=== PATIENT | female | born 1985 | race Caucasian/White ===

== ENCOUNTER → 2019-10-21 | Outpatient (CLI) | payer OTHER | LOC: OD 10:38 | PROVIDERS: ATTEND Obstetrics & Gynecology | DX: O20.0 Threatened abortion (principal) | CPT/HCPCS: 36415; 84702 ==

== ENCOUNTER → 2019-10-24 | Outpatient (CLI) | payer OTHER | LOC: OD 07:23 | PROVIDERS: ATTEND Obstetrics & Gynecology | DX: O20.0 Threatened abortion (principal) | CPT/HCPCS: 36415; 84702 ==

== ENCOUNTER 2020-06-13 14:43 | Outpatient (CLI) | payer OTHER ==
--- NOTE | 2020-06-13 16:00 | Non Stress Test Report ---
Non Stress Test Datetime Report Generated by CPN: 06/13/2020 15:59 DEMOGRAPHIC EGA NST: 38.2 INDICATION Indication for Study (NST) Other: IUP at 38.2 VITAL SIGNS Temperature - NST: 97.1 Pulse - NST: 97 RESP - NST: 18 NBPSYS NST: 113 NBPDIA NST: 52 MONITORING Monitor Explained: Monitor Explained; Test Explained; Patient Verbalized Understanding Time on Monitor: 06/13/2020 14:48 Time off Monitor: 06/13/2020 15:53 NST Duration: 65 NST INTERVENTIONS NST Interventions: PO Hydration; Reposition Patient Physician Notified NST: C. Louise, CNM BABY A: [id number] BABY A Movement : Present Contraction Frequency : 0 FHR Baseline : 130 Accelerations : 15X15 Decelerations : None Variability : Moderate 6-25bpm NST Review: Meets Criteria for Reactive NST NST Review and Verified By : AFeuston, RN NST Results: Reactive NST COMMENTS NST Comments: C. Louise, CNM reviewed strip NST REPORT Report Trigger: Send Report
[2020-06-13 16:16] LABS: APPEARANCE,URINE CLOUDY; BILIRUBIN,URINE NEGATIVE (NEGATIVE); COLOR,URINE YELLOW; GLUCOSE, URINE NEGATIVE (NEGATIVE); KETONES,URINE TRACE mg/dL (NEGATIVE); LEUKOCYTE ESTERASE,URINE MODERATE (NEGATIVE); NITRITE,URINE NEGATIVE (NEGATIVE); PROTEIN,URINE 30 mg/dL (NEGATIVE); UROBILINOGEN,URINE NEGATIVE mg/dL (<2.0)
[2020-06-13 16:38] LABS: URINE AMPHETAMINES SCREEN NEGATIVE; URINE BARBITURATES SCREEN NEGATIVE; URINE BENZODIAZEPINES SCREEN NEGATIVE; URINE COCAINE SCREEN NEGATIVE; URINE MARIJUANA (THC) SCREEN NEGATIVE; URINE METHADONE SCREEN NEGATIVE; URINE PHENCYCLIDINE SCREEN NEGATIVE
== END 2020-06-13 16:08 | disposition home or self-care (01) ==
LOC: LC 14:43
PROVIDERS: ATTEND Obstetrics & Gynecology
DX: O40.3XX0 Polyhydramnios, third trimester, not applicable or unspecified (principal); R10.9 Unspecified abdominal pain; Z3A.38 38 weeks gestation of pregnancy
CPT/HCPCS: 59025; 80307; 81005

== ENCOUNTER 2020-06-17 17:23 | Inpatient (IN) | payer OTHER ==
[2020-06-17] MEDS ORDERED: ACETAMINOPHEN 325 MG TABLET PO PRN (17:30)
[2020-06-17] MEDS ORDERED: OXYTOCIN/0.9 % SODIUM CHLORIDE 30 UNIT/500 ML RTUINJ IV PRN (17:30)
[2020-06-17] MEDS ORDERED: DINOPROSTONE 10 MG VAGINAL INSERT.SR PV ONE (17:30)
[2020-06-17] MEDS ORDERED: RINGERS SOLUTION,LACTATED 300 ML IV ONE (17:30)
[2020-06-17] MEDS ORDERED: MAG HYDROX/AL HYDROX/SIMETH SUSP 30 ML UDCUP PO PRN (17:30)
[2020-06-17] MEDS ORDERED: ZOLPIDEM TARTRATE 5 MG TABLET PO PRN (17:30)
[2020-06-17] MEDS: RINGERS SOLUTION,LACTATED 1,000 ML IV PRN (18:12)
[2020-06-17 18:21] LABS: APPEARANCE,URINE SLIGHTLY-CLOUDY; BILIRUBIN,URINE NEGATIVE (NEGATIVE); COLOR,URINE YELLOW; GLUCOSE, URINE NEGATIVE (NEGATIVE); KETONES,URINE NEGATIVE (NEGATIVE); LEUKOCYTE ESTERASE,URINE NEGATIVE (NEGATIVE); NITRITE,URINE NEGATIVE (NEGATIVE); PROTEIN,URINE NEGATIVE (NEGATIVE); URINE SPECIFIC GRAVITY 1.013; UROBILINOGEN,URINE NEGATIVE mg/dL (<2.0)
[2020-06-17 18:34] LABS: ABSOLUTE BASOPHILS # (AUTO) 0.1 10^3/uL (0.0-0.2); ABSOLUTE LYMPHOCYTES (AUTO) 2.6 10^3/uL (0.5-4.7); ABSOLUTE MONOCYTES (AUTO) 0.7 10^3/uL (0.1-1.4); ABSOLUTE NEUT (AUTO) 9.5 10^3/uL (1.7-8.2); BASOPHILS % (AUTO) 0.6 % (0-2); EOSINOPHILS % (AUTO) 0.3 % (0-6); HEMATOCRIT 30.4 % (36.0-47.0); HEMOGLOBIN 10.2 g/dL (12.0-15.5); MEAN CORPUSCULAR HGB CONC 33.5 g/dL (32.0-36.0); MEAN CORPUSCULAR VOLUME 92 fl (80-97); MONOCYTES % (AUTO) 5.5 % (3-13); PLATELET COUNT 185 10^3/uL (150-450); RED BLOOD COUNT 3.28 10^6/uL (3.72-5.28); RED CELL DISTRIBUTION WIDTH 18.2 % (11.5-14.0); SEGMENTED NEUTROPHILS % (AUTO) 73.6 % (42-78); TOTAL CELLS COUNTED % (AUTO) 100 %; WHITE BLOOD COUNT 12.9 10^3/uL (4.0-10.5)
[2020-06-17 18:50] LABS: URINE AMPHETAMINES SCREEN NEGATIVE; URINE BARBITURATES SCREEN NEGATIVE; URINE BENZODIAZEPINES SCREEN NEGATIVE; URINE COCAINE SCREEN NEGATIVE; URINE MARIJUANA (THC) SCREEN NEGATIVE; URINE METHADONE SCREEN NEGATIVE; URINE PHENCYCLIDINE SCREEN NEGATIVE
[2020-06-17] MEDS ORDERED: DINOPROSTONE 10 MG VAGINAL INSERT.SR ONE (19:10)
--- NOTE | 2020-06-17 23:39 | Admission Physical ---
Datetime Report Generated by CPN: 06/17/2020 23:39 CURRENT ADMISSION Chief Complaint: Other Indication for Induction: Maternal Diabetes Admit Impression : Term, Intrauterine Admit Plan: Admit to Unit; Initiate Labor Augmentation Protocol ALLERGIES Medication Allergies: No Medication Allergies: spinach (06/17/2020); walnut (06/17/2020); pecan nut (06/17/2020) Latex: No Latex Allergies Food Allergies: Walnuts, Pecan, and spinach Environmental Allergies: Seasonal OBSTETRICAL HISTORY EDC: 06/25/2020 00:00 : 3 Para: 1 Term: 1 : 0 SAB: 0 IAB: 1 Ectopic: 0 Livin Cesareans: 0 VBACs: 0 Multiple Births: 1 Gestational Diabetes: No Rh Sensitization: No Incompetent Cervix: No DANIELLE: No Infertility: Yes ART Treatment: No Uterine Anomaly: No IUGR: No Hx Previous C/S: No Macrosomia: No Hx Loss/Stillborn: No PIH: No Hx : No Placenta Previa/Abruption: No Depression/PP Depression: No PTL/PROM: No Post Hemorrhage: No Current Procedures: Ultrasound; NST Obstetrical History Comments: G1- 2004, Twins, 27 weeks, and vaginal G2- 2004, IAB G3- Current, IOL, Poly SEE RECORDS Alcohol: No Marijuana : No Cocaine: No Other Illicit Drugs: No Cigarettes: Never Smoker. 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 surgery for PCOS 2017, obesity, wisdom teeth 2018, Childbirth INFECTIOUS HISTORY Gonorrhea: No Genital Herpes: No Chlamydia: No Tuberculosis: No Syphilis: No Hepatitis: No HIV/AIDS Exposure: No Rash or Viral Illness: No HPV: No PHYSICAL EXAM General: Normal HEENT: Normal Neurologic: Normal Thyroid: Normal Heart: Normal Lungs: Normal Breast: Deferred Back: Normal Abdomen: Normal Genitourinary Exam: Normal Extremities: Normal DTRs: Normal Pelvic Type: Adequate FETUS A EGA: 38.6 PLANS FOR LABOR AND DELIVERY Labor and Delivery: None Pain Management: Epidural Feeding Preference: Formula Benefit of Breast Feed Discussed: Yes Circumcision: N/A INFORMED CONSENT Signature: with User ID: [email or web address]
[2020-06-18] MEDS ORDERED: ZOLPIDEM TARTRATE 5 MG TABLET ONE ×2 (01:01→01:03)
--- NOTE | 2020-06-18 09:01 | L&D Progress Notes ---
PROGRESS NOTES Datetime Report Generated by CPN: 06/18/2020 09:01 PROGRESS NOTE Impression: Reassuring Heart Rate Procedures- Other: garvin's cath placed Plan: Continue Present Management; Induction Vital Signs : Reviewed; Within Normal Limits Comment: here for IOL, at 39 wks. Hx Polyhydramnios and GDM. Vtx on spot check u/s this morning. S/p Cervidil overnight. Pt doing well, no complaints. VE 50/-3 with mild contractions. Garvin's cath placed w/ 80 ml fluid in each bulb. Pt tolerated well. Will start Pitocin. GBS negative. Attending MD is Dr Mcneill today, agrees w/ plan of care. LAST VAGINAL EXAM-NURSING Nursing Exam Dilitation: 1.0 Nursing Exam Effacement: 50 Nursing Exam Station: -3 Nursing Exam Contractions: Pt states "I feel something every once in a while, but not much." MEMBRANES Membranes: Intact FETUS A FHR - Baseline: 145 Variability: Moderate 6-25bpm Accelerations: 10X10 Decelerations: None SIGNATURE SIGNATURE: [id number];[id number];[id number] Assignment: Rose Mcneill MD Signature: with User ID: [email or web address] : with User ID: [email or web address]
[2020-06-18] MEDS ORDERED: MISOPROSTOL 0.2 MG TABLET ONE (09:02)
[2020-06-18] MEDS ORDERED: OXYTOCIN 10 UNIT/ML VIAL ONE (09:02)
[2020-06-18] MEDS ORDERED: LIDOCAINE 1% INJ-PF (10 MG/ML) 30 ML SDV ONE (09:02)
[2020-06-18] MEDS ORDERED: OXYTOCIN/0.9 % SODIUM CHLORIDE 30 UNIT/500 ML RTUINJ ONE (09:02)
[2020-06-18] MEDS: RINGERS SOLUTION,LACTATED 1,000 ML IV PRN ×2 (13:12→17:38)
--- NOTE | 2020-06-18 16:16 | L&D Progress Notes ---
PROGRESS NOTES Datetime Report Generated by CPN: 06/18/2020 16:16 PROGRESS NOTE Impression: Reassuring Heart Rate Procedures: Artificial ROM; Sterile Vag Exam Procedures- Other: Garvin's cathater removed Plan: Continue Present Management; Induction Vital Signs : Reviewed Comment: Pt remains comfortable, Pitocin infusing. Virgie's cathater removed. VE 3/50/-2. AROM w/ moderate amount of clear, bloodtinged fluid. Pt may have an epidural when she desires. Dr Mcneill updated on pts status. LAST VAGINAL EXAM-NURSING Nursing Exam Dilitation: 3.0 Nursing Exam Effacement: 50 Nursing Exam Station: -2 Nursing Exam Contractions: Pt states "I feel something every once in a while, but not much." MEMBRANES Membranes: Ruptured Amniotic Fluid Color: Bloody FETUS A FHR - Baseline: 145 Monitoring: External US Variability: Moderate 6-25bpm Accelerations: 15X15 Decelerations: None SIGNATURE SIGNATURE: [id number];[id number];[id number] Assignment: Rose Mcneill MD Signature: with User ID: [email or web address] : with User ID: [email or web address]
--- NOTE | 2020-06-18 16:52 | L&D Progress Notes ---
PROGRESS NOTES Datetime Report Generated by CPN: 06/18/2020 16:52 PROGRESS NOTE Impression: Reassuring Heart Rate Procedures: Artificial ROM; Sterile Vag Exam Procedures- Other: Garvin's cathater removed Plan: Continue Present Management; Induction Vital Signs : Reviewed Comment: Pt now becoming uncomfortable w/ contractions. RN requesting FSE., difficult to continually monitor FHR d/t pts habitus and polyhydramnios. Ve /-2. FSE applied. Pt to get an epidural LAST VAGINAL EXAM-NURSING Nursing Exam Dilitation: 4.0 Nursing Exam Effacement: 70 Nursing Exam Station: -2 Nursing Exam Contractions: Pt states "I feel something every once in a while, but not much." MEMBRANES Membranes: Ruptured Amniotic Fluid Color: Clear FETUS A FHR - Baseline: 145 Monitoring: Internal Scalp Electrode Variability: Moderate 6-25bpm Accelerations: 15X15 Decelerations: None SIGNATURE SIGNATURE: [id number];[id number];[id number] Assignment: Rose Mcneill MD Signature: with User ID: [email or web address] : with User ID: [email or web address]
[2020-06-18] MEDS ORDERED: ROPIVACAINE HCL 0.2% INJ/PF (2 MG/ML) 20 ML SDV ONE (17:14)
[2020-06-18] MEDS ORDERED: EPHEDRINE SULFATE INJ 50 MG/1 ML AMPULE ONE (17:14)
[2020-06-18] MEDS ORDERED: FENTANYL/BUPIVACAINE/NS/PF 300 MCG/150 ML RTUINJ EPI ONE (17:14)
[2020-06-18] MEDS ORDERED: PROMETHAZINE HCL INJ 25 MG/1 ML VIAL IV PRN (18:21)
[2020-06-18] MEDS ORDERED: DIPH/PERTUSS(ACELL)/TETANUS VAC/PF 0.5 ML SYR (>=10YO) IM PRN (18:21)
[2020-06-18] MEDS ORDERED: ACETAMINOPHEN WITH CODEINE #3 TABLET PO PRN ×2 (18:21)
[2020-06-18] MEDS ORDERED: BENZOCAINE/MENTHOL AEROSOL SPRAY 56 ML TOP PRN (18:21)
[2020-06-18] MEDS ORDERED: GLYCERIN/WITCH HAZEL LEAF 1 EACH MED..WIPE TP PRN (18:21)
[2020-06-18] MEDS ORDERED: ACETAMINOPHEN 650 MG SUPP.RECT PR PRN (18:21)
[2020-06-18] MEDS ORDERED: ZOLPIDEM TARTRATE 5 MG TABLET PO PRN (18:21)
[2020-06-18] MEDS ORDERED: PSEUDOEPHEDRINE HCL 30 MG TABLET PO PRN (18:21)
[2020-06-18] MEDS ORDERED: DIBUCAINE 1% OINTMENT 28 GM TP PRN (18:21)
[2020-06-18] MEDS ORDERED: NA PHOS,M-B/NA PHOS,DI-BA (ADULT) 133 ML ENEMA PR PRN (18:21)
[2020-06-18] MEDS ORDERED: PROMETHAZINE HCL 25 MG SUPP.RECT PR PRN (18:21)
[2020-06-18] MEDS ORDERED: DIPHENHYDRAMINE HCL 25 MG CAPSULE PO PRN (18:21)
[2020-06-18] MEDS ORDERED: MAGNESIUM HYDROXIDE SUSP 30 ML UDCUP PO PRN (18:21)
[2020-06-18] MEDS ORDERED: MEASLES,MUMPS&RUBELLA VACC/PF 0.5 ML VIAL SUBCUT PRN (18:21)
[2020-06-18] MEDS ORDERED: OXYTOCIN/0.9 % SODIUM CHLORIDE 30 UNIT/500 ML RTUINJ IV PRN (18:21)
[2020-06-18] MEDS ORDERED: PROMETHAZINE HCL 25 MG TABLET PO PRN (18:21)
--- NOTE | 2020-06-18 18:36 | Warning Signs in Babies ---
VOD Warning Signs Datetime Report Generated by [facility]: 06/18/2020 18:35 VOD#608 -Warning Signs in Babies: Viewed with Parent(s)/Family (06/18/2020 10:05:Tamara Ochoa RN)
[2020-06-18] MEDS ORDERED: IBUPROFEN 800 MG TABLET ONE (19:44)
[2020-06-18] MEDS: IBUPROFEN 800 MG TABLET PO SCH (22:32)
[2020-06-18] MEDS: FAMOTIDINE 20 MG TABLET PO SCH (22:48)
[2020-06-19] MEDS: IBUPROFEN 800 MG TABLET PO SCH ×3 (05:16→21:12)
[2020-06-19 07:07] LABS: HEMATOCRIT 25.1 % (36.0-47.0); HEMOGLOBIN 8.4 g/dL (12.0-15.5); MEAN CORPUSCULAR HEMOGLOBIN 31.3 pg (27.0-33.4); MEAN CORPUSCULAR HGB CONC 33.4 g/dL (32.0-36.0); MEAN CORPUSCULAR VOLUME 94 fl (80-97); PLATELET COUNT 143 10^3/uL (150-450); RED BLOOD COUNT 2.67 10^6/uL (3.72-5.28); RED CELL DISTRIBUTION WIDTH 18.2 % (11.5-14.0); WHITE BLOOD COUNT 12.8 10^3/uL (4.0-10.5)
[2020-06-19] MEDS: DOCUSATE SODIUM 100 MG CAPSULE PO SCH ×2 (09:47→17:55)
[2020-06-19] MEDS: FAMOTIDINE 20 MG TABLET PO SCH ×2 (09:48→21:12)
[2020-06-19] MEDS: PRENATAL VITAMIN W DHA CAPSULE PO SCH (09:48)
[2020-06-19] MEDS: SENNOSIDES/DOCUSATE 8.6-50 MG 1 EACH TABLET PO SCH (09:48)
[2020-06-19] MEDS: FERROUS SULFATE 325 MG TABLET PO SCH ×2 (09:48→17:55)
--- NOTE | 2020-06-19 11:18 | PDOC PROGRESS REPORT ---
Subjective-OB Progress Note for:: 06/19/20 Subjective: reports bleeding slowing, pain controlled with current meds. denies needs Physical Exam (OB) Vital Signs: Temp Pulse Resp BP Pulse Ox 98.0 F 83 17 106/59 L 99 06/19/20 10:00 06/19/20 07:00 06/19/20 07:00 06/19/20 07:00 06/19/20 07:00 Intake & Output 06/18/20 06/19/20 06/20/20 06:59 06:59 06:59 Intake Total 1000 554 Balance 1000 554 Weight 128.6 kg - Maternal Morbidity 59. Maternal Morbidity (serious complications experinced by the mother associated with labor and delivery: None of the above - Abdomen Description: Soft Hernia Present: No Fundal Description: Firm, Midline Fundal Height: u/u - u/2 - Abdominal Distension: No distension Tenderness: Nontender - Extremities Lower extremities: Nichol's sign - neg Calf: Normal, Nontender Objective-Diagnostic Laboratory: 06/19/20 06:15 06/19/20 06/19/20 06:15 06:15 WBC 12.8 H RBC 2.67 L Hgb 8.4 L Hct 25.1 L MCV 94 MCH 31.3 MCHC 33.4 RDW 18.2 H Plt Count 143 L Blood Type A NEGATIVE Assessment and Plan(PN) - Time Spent with Patient Time with patient: Less than 15 minutes - Disposition Anticipated Discharge Disposition: Home, Self Care Anticipated Discharge Timeframe: within 24 hours
[2020-06-20] MEDS: IBUPROFEN 800 MG TABLET PO SCH (05:24)
[2020-06-20 08:16] VITALS: BP 114/51
[2020-06-20] MEDS: DOCUSATE SODIUM 100 MG CAPSULE PO SCH (09:42)
[2020-06-20] MEDS: PRENATAL VITAMIN W DHA CAPSULE PO SCH (09:42)
[2020-06-20] MEDS: SENNOSIDES/DOCUSATE 8.6-50 MG 1 EACH TABLET PO SCH (09:42)
[2020-06-20] MEDS: FERROUS SULFATE 325 MG TABLET PO SCH (09:42)
[2020-06-20] MEDS: FAMOTIDINE 20 MG TABLET PO SCH (09:42)
--- NOTE | 2020-06-20 12:30 | PDOC DISCHARGE SUMMARY ---
Impression - Admit/DC Date/PCP Admission Date/Primary Care Provider: 06/17/20 17:23 IDA DELGADO MD Discharge Date: 06/20/20 - Discharge Diagnosis (1) Acute blood loss anemia Is this a current diagnosis for this admission?: Yes (2) Anemia complicating , third trimester Is this a current diagnosis for this admission?: Yes (3) Obstetric labial laceration, delivered, current hospitalization Is this a current diagnosis for this admission?: Yes (4) Obstetric vaginal laceration Is this a current diagnosis for this admission?: Yes (5) Polyhydramnios affecting Is this a current diagnosis for this admission?: Yes (6) Vaginal delivery Is this a current diagnosis for this admission?: Yes - Assessment Summary: 34yo G2 now P2L3 ppd 2, stable and ready for discharge. Understands warning s/s and when to rtc/[facility] - Additional Information Resuscitation Status: Full Code Discharge Diet: As Tolerated, Regular Discharge Activity: Activity As Tolerated, Balance Activity w/Rest, No Lifting Over 10 Pounds, Pelvic Rest, No tub bath, Walk Frequently Referrals: IDA DELGADO MD [Primary Care Provider] - Prescriptions: Ibuprofen [Motrin 800 mg Tablet] 800 mg PO Q8HP PRN #20 tablet PRN Reason: For Pain Scale 1-3 Docusate Sodium [Colace 100 mg Capsule] 100 mg PO BID #60 capsule Ferrous Sulfate [Feosol 325 mg Tablet] 325 mg PO BID #60 tablet Home Medications: Prenat 115/Iron Fum/Folic/Dss [ 19 Tablet] 1 tab PO DAILY 06/13/20 Docusate Sodium [Colace 100 mg Capsule] 100 mg PO BID #60 capsule 06/20/20 Ferrous Sulfate [Feosol 325 mg Tablet] 325 mg PO BID #60 tablet 06/20/20 Ibuprofen [Motrin 800 mg Tablet] 800 mg PO Q8HP PRN #20 tablet 06/20/20 Hospital Course 59. Maternal Morbidity (serious complications experinced by the mother associated with labor and delivery: None of the above Results Laboratory Results: WBC 12.8 10^3/uL (4.0-10.5) H 06/19/20 06:15 RBC 2.67 10^6/uL (3.72-5.28) L 06/19/20 06:15 Hgb 8.4 g/dL (12.0-15.5) L 06/19/20 06:15 Hct 25.1 % (36.0-47.0) L 06/19/20 06:15 MCV 94 fl (80-97) 06/19/20 06:15 MCH 31.3 pg (27.0-33.4) 06/19/20 06:15 MCHC 33.4 g/dL (32.0-36.0) 06/19/20 06:15 RDW 18.2 % (11.5-14.0) H 06/19/20 06:15 Plt Count 143 10^3/uL (150-450) L 06/19/20 06:15 Lymph % (Auto) 20.0 % (13-45) 06/17/20 18:07 [place] % (Auto) 5.5 % (3-13) 06/17/20 18:07 Eos % (Auto) 0.3 % (0-6) 06/17/20 18:07 Baso % (Auto) 0.6 % (0-2) 06/17/20 18:07 Absolute Neuts (auto) 9.5 10^3/uL (1.7-8.2) H 06/17/20 18:07 Absolute Lymphs (auto) 2.6 10^3/uL (0.5-4.7) 06/17/20 18:07 Absolute Monos (auto) 0.7 10^3/uL (0.1-1.4) 06/17/20 18:07 Absolute Eos (auto) 0.0 10^3/uL (0.0-0.6) 06/17/20 18:07 Absolute Basos (auto) 0.1 10^3/uL (0.0-0.2) 06/17/20 18:07 Seg Neutrophils % 73.6 % (42-78) 06/17/20 18:07 Urine Color YELLOW 06/17/20 17:35 Urine Appearance SLIGHTLY-CLOUDY 06/17/20 17:35 Urine pH 6.0 (5.0-9.0) 06/17/20 17:35 Ur Specific [place] 1.013 06/17/20 17:35 Urine Protein NEGATIVE mg/dL (NEGATIVE) 06/17/20 17:35 Urine Glucose (UA) NEGATIVE mg/dL (NEGATIVE) 06/17/20 17:35 Urine Ketones NEGATIVE mg/dL (NEGATIVE) 06/17/20 17:35 Urine Blood NEGATIVE (NEGATIVE) 06/17/20 17:35 Urine Nitrite NEGATIVE (NEGATIVE) 06/17/20 17:35 Urine Bilirubin NEGATIVE (NEGATIVE) 06/17/20 17:35 Urine Urobilinogen NEGATIVE mg/dL (<2.0) 06/17/20 17:35 Ur Leukocyte Esterase NEGATIVE (NEGATIVE) 06/17/20 17:35 Urine Ascorbic Acid NEGATIVE (NEGATIVE) 06/17/20 17:35 Urine Opiates Screen NEGATIVE 06/17/20 17:35 Urine Methadone Screen NEGATIVE 06/17/20 17:35 Ur Barbiturates Screen NEGATIVE 06/17/20 17:35 Ur Phencyclidine Scrn NEGATIVE 06/17/20 17:35 Ur Amphetamines Screen NEGATIVE 06/17/20 17:35 U Benzodiazepines Scrn NEGATIVE 06/17/20 17:35 Urine Cocaine Screen NEGATIVE 06/17/20 17:35 U Marijuana (THC) Screen NEGATIVE 06/17/20 17:35 RPR NONREACTIVE (NONREACTIVE) 06/17/20 18:07 Blood Type A NEGATIVE 06/19/20 06:15 Antibody Screen NEGATIVE 06/17/20 18:07 Screen NEGATIVE 06/19/20 06:15
--- NOTE | 2020-06-26 08:05 | Delivery Summary ---
Del Sum A-C Datetime Report Generated by CPN: 06/26/2020 08:05 DELIVERY PERSONNEL DELIVERY PERSONNEL: [id number] Delivery Doctor:: Rose Mcneill MD Labor and Delivery Nurse:: Tamara Ochoa RNfacility engineer Nurse:: RADHA Melendez Central Station Operator/[employer] OFFICER: Rosa Cornelius Central Station Operator/[employer] OFFICER: Karen Henriquez CST Additional Personnel: : Samantha Chacon RN MATERNAL INFORMATION Delivery Anesthesia: Epidural Delivery Anesthesia: Epidural Medications During Delivery: epidural placed, infant delivered after loading dose Medications After Delivery: Pitocin 30 Units in 500ml NS/D5W Estimated Blood Loss (ml): 250 Delivery QBL Comment: due to precipitous nurse controlled delivery; unable to obtain accurate QBL Maternal Complications: Other Complication Details: polyhydramnious LABOR SUMMARY EDC: 06/25/2020 00:00 No. Babies in Womb: 1 Attempted: No Labor Anesthesia: Epidural LABOR INFORMATION Reason for Induction: Polyhydramnios Onset of Labor: 06/18/2020 15:00 Complete Dilatation: 06/18/2020 17:59 Cervical Ripening Agents: Cervidil; Other Other Ripening Agents: Cook's catheter (Annotations: Data stored by N on behalf of user) Oxytocin: Induction Group B Beta Strep: negative Antibiotics # of Doses: n/a Steroids Given: None Reason Steroids Not Administered: Not Applicable MEMBRANES Membranes Rupture Method: Artificial Rupture of Membranes: 06/18/2020 16:09 Length of Rupture (hr): 1.85 Amniotic Fluid Color: Clear Amniotic Fluid Amount: Large Amniotic Fluid Odor: None STAGES OF LABOR Stage 1 hr: 2 Stage 1 min: 59 Stage 2 hr: 0 Stage 2 min: 1 Stage 3 hr: 0 Stage 3 min: 10 Total Time in Labor hr: 3 Total Time in Labor min: 10 VAGINAL DELIVERY Episiotomy: None Laceration #1: Vaginal Laceration Extension #1: First Degree Laceration #2: None Laceration Extension #2: N/A Laceration #3: None Laceration Extension #3: N/A Other Laceration: left labial laceration Laceration Repair: Yes Laceration Repair Note: Repair with 3-0 chromic suture Sponge Count Correct: N/A; Vaginal Sweep Performed Sharps Count Correct: N/A CSECTION DELIVERY Primary Indication: N/A Secondary Indication: Repeat Elective CSection Incidence: N/A Labor: N/A Elective: N/A CSection Incision: N/A BABY A INFORMATION Delivery Date/Time: 06/18/2020 18:00 Method of Delivery: Vaginal Nurse Controlled Delivery: Yes Born in Route : No : N/A Forceps: N/A Vacuum Extraction: N/A Shoulder Dystocia : No PRESENTATION/POSITION BABY A Presentation: Cephalic Presentation: Cephalic Cephalic Presentation: Vertex Vertex Position: Right Occipital Posterior Breech Presentation: N/A PLACENTA INFORMATION BABY A Placenta Delivery Time : 06/18/2020 18:10 Placenta Method of Delivery: Spontaneous Placenta Status: Delivered SCORES BABY A Heart Rate 1 min: >100 bpm Resp Effort 1 min: Good Cry Reflex Irritability 1 min: Cough or Sneeze or Pulls Away Muscle Tone 1 min: Some Flexion of Extremities Color 1 min: Body [place], Extremities Blue Resuscitation Effort 1 min: Tactile Stimulation SCORE 1 MIN: 8 Heart Rate 5 min: >100 bpm Resp Effort 5 min: Good Cry Reflex Irritability 5 min: Cough or Sneeze or Pulls Away Muscle Tone 5 min: Active Motion Color 5 min: Body [place], Extremities Blue Resuscitation Effort 5 min: N/A SCORE 5 MIN: 9 Resuscitation Effort 10 min: N/A INFORMATION BABY A Gestational Age at Delivery: 39.0 Gestational Status: Full Term- 39- 40.6 Weeks Outcome : Liveborn Condition : Stable Sex: Female IDENTIFICATION BABY A Verification Date/Time: 06/18/2020 19:39 ID Band Number: [id number] Mother's Name Verified: Yes Infant RN Verifying Infant: Rojas BaxterKASSIDY Additional Verifying Personnel: Marilynn Wells RN WEIGHT/LENGTH BABY A Birthweight (gm): 3404 Infant Weight (lb): 7 Weight (oz): 8 Length (in): 20.50 Infant Length (cm): 52.07 CORD INFORMATION BABY A No. Cord Vessels: 3 Nuchal Cord : N/A Cord Blood Taken: Yes-For Eval (Mom's Blood Type - or O+) Infant Suction: None ASSESSMENT BABY A Complications: None Physical Findings at Delivery: Within Normal Limits Respirations: Appears Normal Skin to Skin: Yes Skin to Skin Time (min): 60 Beef Lugger/ALS Called : No Care By: Ashley Dunne RN Transferred To: Remains with Mother BABY B INFORMATION : N/A SIGNATURES Signature: with User ID: [email or web address]
== END 2020-06-20 15:03 | disposition home or self-care (01) | DRG 806 ==
LOC: LR 17:23 → 2S 06-18 21:22
PROVIDERS: ADMIT Obstetrics & Gynecology Gynecology; ATTEND Obstetrics & Gynecology Gynecology
PROC: 10E0XZZ Delivery of Products of Conception, External Approach (ICD-10-PCS; principal; 2020-06-18)
PROC: 3E0334Z Introduction of Serum, Toxoid and Vaccine into Peripheral Vein, Percutaneous Approach (ICD-10-PCS; 2020-06-18)
PROC: 3E033VJ Introduction of Other Hormone into Peripheral Vein, Percutaneous Approach (ICD-10-PCS; 2020-06-18)
PROC: 10907ZC Drainage of Amniotic Fluid, Therapeutic from Products of Conception, Via Natural or Artificial Opening (ICD-10-PCS; 2020-06-18)
DX: O40.3XX0 Polyhydramnios, third trimester, not applicable or unspecified (principal); D62 Acute posthemorrhagic anemia; Z37.0 Single live birth; O99.02 Anemia complicating childbirth; O70.0 First degree perineal laceration during delivery; O62.3 Precipitate labor; Z3A.39 39 weeks gestation of pregnancy; Z88.8 Allergy status to other drugs, medicaments and biological substances; Z91.018 Allergy to other foods; Z91.09 Other allergy status, other than to drugs and biological substances
CPT/HCPCS: 1967; 36415; 80307; 81005; 85025; 85027; 85461; 86592; 86850; 86900; 86901; J2590; J2790; J2795; J3010; J3490